=== PATIENT | male | born 1955 | race Caucasian/White ===

== ENCOUNTER → 2016-10-09 | Outpatient (CLI) | payer OTHER ==
--- NOTE | 2016-10-09 13:11 | RAD ---
Two-view abdomen radiographs 10/09/2016 Clinical history: Abdominal pain with nausea and diarrhea for 2 days. 3 AP supine and 2 AP erect digital radiographs of the abdomen/pelvis were obtained. Comparison study is dated 07/14/2008. The lung bases are clear. There is no evidence of free air. Air distention of both small and large bowel loops is seen throughout the abdomen. The abdominal bowel gas pattern is nonspecific. No radiopaque calculus is seen. Degenerative changes are seen involving the mid and lower lumbar spine. Impression: Nonspecific bowel gas pattern.
== END | disposition home or self-care (01) ==
LOC: DXRADRC 12:39
PROVIDERS: ATTEND Physician Assistant
DX: R10.9 Unspecified abdominal pain (principal); R11.0 Nausea; R19.7 Diarrhea, unspecified; M47.896 Other spondylosis, lumbar region
CPT/HCPCS: 74020

== ENCOUNTER → 2016-12-04 | Outpatient (CLI) | payer MEDICARE ==
--- NOTE | 2016-12-04 08:58 | RAD ---
Chest radiograph 12/04/2016 2:00 AM Indication: Chest congestion with productive cough Comparison: None available Technique: PA and lateral views of the chest are provided. Findings: Cardiomediastinal silhouette is within normal limits. No pleural effusions, pulmonary vascular congestion or pneumothorax. The lungs are clear. There is a 4 mm calcified granuloma in the left upper lobe. Osseous structures are normal. Impression: No acute cardiopulmonary process.
== END | disposition home or self-care (01) ==
LOC: DXRADRC 08:06
PROVIDERS: ATTEND Nurse Practitioner Family
DX: J84.10 Pulmonary fibrosis, unspecified (principal); R09.89 Other specified symptoms and signs involving the circulatory and respiratory systems; R05 Cough
CPT/HCPCS: 71020

== ENCOUNTER 2020-08-07 11:45 | Emergency (ER) | payer MEDICARE ==
[~2020-08-07] VITALS: Ht 180.3 cm; Wt 75.4 kg
[2020-08-07] MEDS ORDERED: IPRATRPIUM/ALBUTEROL 0.5/2.5MG 3 ML NEBU. ONE (11:53)
--- NOTE | 2020-08-07 11:57 | PHYS DOC ---
Adult General Chief Complaint Chief Complaint: DYSPNEA/RESPIRATOY DISTRESS HPI HPI Patient is a 65-year-old male presenting via EMS for acute respiratory failure. Patient "does not like doctors"and has had infrequent outpatient follow-up over the years. Admits to type 2 diabetes mellitus for which she is on Metformin and has history of COPD and sleep apnea but is noncompliant with home inhalers and CPAP machine. Reports past 4 days having increased wheezing and shortness of breath that acutely worsened this morning shortly after waking up. Nothing kno wn makes better, ongoing tobacco abuse makes worse. He has not had any fever or chest pain just generalized feelings of shortness of breath and palpitations. He has no known history of atrial fibrillation, denies being on any blood thinners. Remaining history limited due to acute respiratory failure inability to speak in few word sentences only. EMS reports arriving to home and was greeted by who gave majority of history. Patient was found to be 38% on room air and respiratory failure. X1 DuoNeb, supplemental oxygen and 125 mg Solu-Medrol administered in route Review of Systems Review of Systems Fourteen body systems of review of systems have been reviewed. See HPI for pertinent positives and negative responses, other patton all other systems are negative, non-pertinent or non-contributory Current Medications Current Medications Current Medications Medications (Trade) Dose Ordered Sig/Tj Start Time Stop Time Status Last Admin Dose Admin Albuterol/ Ipratropium (Duoneb) 3 ml 1X ONCE 08/07/20 12:00 08/07/20 12:01 DC Diltiazem HCl (Cardizem Iv Push) 20 mg 1X ONCE 08/07/20 12:15 08/07/20 12:16 DC 08/07/20 12:15 Heparin Sodium (Porcine) (Heparin Sodium) 1,900 unit PRN Q6HRS PRN 08/07/20 13:15 Heparin Sodium/ Dextrose 250 ml @ 9 mls/hr CONT PRN 08/07/20 13:15 08/07/20 14:33 Info (Do NOT chart on this entry -- for MONITORING) 1 each PRN DAILY PRN 08/07/20 13:45 08/09/20 13:44 Iohexol (Omnipaque 350 Mg/ml) 100 ml 1X ONCE 08/07/20 13:45 08/07/20 13:46 DC Lorazepam (Ativan Inj) 1 mg 1X ONCE 08/07/20 12:00 08/07/20 12:01 DC 08/07/20 12:00 Sodium Chloride 1,000 ml @ 1,000 mls/hr 1X ONCE 08/07/20 12:30 08/07/20 13:29 DC 08/07/20 12:28 Physical Exam Physical Exam Constitutional: Age-appropriate, appears disheveled, in acute respiratory failure and toxic appearing HENT: Normocephalic, atraumatic, bilateral external ears normal, oropharynx moist, no oral exudates, nose normal. Eyes: PERRLA, EOMI, conjunctiva normal, no discharge. Neck: Normal range of motion, no tenderness, supple, no stridor. Cardiovascular: Atrial fibrillation with rapid ventricular rate no murmurs rubs or gallops Lungs & Thorax: In overt respiratory failure, tripoding with accessory muscle use of neck and abdomen noted, tachypneic, wheezes present in all lobes Abdomen: Bowel sounds normal, soft, no tenderness, no masses, no pulsatile masses. Nonsurgical abdomen, no peritoneal signs Skin: Warm, dry, no erythema, no rash. Back: No tenderness, no CVA tenderness. Extremities: No tenderness, no cyanosis, no clubbing, ROM intact, no edema. Neurologic: Alert and oriented X 3, grossly normal motor & sensory function, no focal deficits noted. Psychologic: Anxious affect and mood Current Patient Data Vital Signs Vital Signs Date Time Temp Pulse Resp B/P (MAP) Pulse Ox O2 Delivery O2 Flow Rate FiO2 08/07/20 11:46 97.7 160 30 123/55 (77) 89 Nasal Cannula 10.0 Vital Signs Date Time Temp Pulse Resp B/P (MAP) Pulse Ox O2 Delivery O2 Flow Rate FiO2 08/07/20 12:15 168 116/108 08/07/20 11:46 97.7 30 89 Nasal Cannula 10.0 Lab Results Laboratory Tests Test 08/07/20 11:55 08/07/20 12:00 08/07/20 12:30 White Blood Count 9.8 x10^3/uL Red Blood Count 5.17 x10^6/uL Hemoglobin 16.6 g/dL Hematocrit 50.2 % Mean Corpuscular Volume 97 fL Mean Corpuscular Hemoglobin 32 pg Mean Corpuscular Hemoglobin Concent 33 g/dL Red Cell Distribution Width 13.9 % Platelet Count 195 x10^3/uL Neutrophils (%) (Auto) 63 % Lymphocytes (%) (Auto) 23 % Monocytes (%) (Auto) 12 % Eosinophils (%) (Auto) 2 % Basophils (%) (Auto) 1 % Neutrophils # (Auto) 6.2 x10^3uL Lymphocytes # (Auto) 2.2 x10^3/uL Monocytes # (Auto) 1.1 x10^3/uL Eosinophils # (Auto) 0.2 x10^3/uL Basophils # (Auto) 0.1 x10^3/uL Sodium Level 143 mmol/L Potassium Level 5.2 mmol/L Chloride Level 103 mmol/L Carbon Dioxide Level 30 mmol/L Anion Gap 10 Blood Urea Nitrogen 19 mg/dL Creatinine 1.1 mg/dL Estimated GFR (Cockcroft-Gault) 67.6 BUN/Creatinine Ratio 17 Glucose Level 328 mg/dL Lactic Acid Level 2.1 mmol/L Calcium Level 8.7 mg/dL Magnesium Level 1.8 mg/dL Total Bilirubin 0.9 mg/dL Aspartate Amino Transf (AST/SGOT) 22 U/L Alanine Aminotransferase (ALT/SGPT) 26 U/L Alkaline Phosphatase 131 U/L Troponin I Quantitative < 0.017 ng/mL XT-Rnh-T-Type Natriuretic Peptide 2719 pg/mL Total Protein 6.7 g/dL Albumin 4.1 g/dL Albumin/Globulin Ratio 1.6 Bedside Venous pH 7.24 Bedside Venous pCO2 75 mmHg Bedside Venous pO2 28 mmHg Venous Blood HCO3 32 mmol/L POC Venous O2 Saturation (Sydni) 40 % Bedside FiO2 100 Prothrombin Time 11.1 SEC Prothromb Time International Ratio 1.1 Activated Partial Thromboplast Time < 21 SEC D-Dimer (Brittany) 3.72 mg/L Current Medications Medications (Trade) Dose Ordered Sig/Tj Route PRN Reason Start Time Stop Time Status Last Admin Dose Admin Albuterol/ Ipratropium (Duoneb) 3 ml STK-MED ONCE .ROUTE 08/07/20 11:53 08/07/20 11:53 DC Lorazepam (Ativan Inj) 1 mg 1X ONCE IVP 08/07/20 12:00 08/07/20 12:01 DC Lorazepam (Ativan Inj) 1 mg 1X ONCE IVP 08/07/20 12:00 08/07/20 12:01 DC 08/07/20 12:00 Albuterol/ Ipratropium (Duoneb) 3 ml 1X ONCE NEB 08/07/20 12:00 08/07/20 12:01 DC Diltiazem HCl (Cardizem Iv Push) 20 mg 1X ONCE IVP 08/07/20 12:15 08/07/20 12:16 DC 08/07/20 12:15 Sodium Chloride 1,000 ml @ 1,000 mls/hr 1X ONCE IV 08/07/20 12:30 08/07/20 13:29 DC 08/07/20 12:28 Heparin Sodium/ Dextrose 250 ml @ 9 mls/hr CONT PRN IV SEE I/O RECORD 08/07/20 13:15 08/07/20 14:33 Heparin Sodium (Porcine) (Heparin Sodium) 4,000 unit 1X ONCE IV 08/07/20 13:15 08/07/20 13:18 DC 08/07/20 14:32 Heparin Sodium (Porcine) (Heparin Sodium) 1,900 unit PRN Q6HRS PRN IV FOR PTT LESS THAN 24 SECONDS 08/07/20 13:15 Iohexol (Omnipaque 350 Mg/ml) 100 ml 1X ONCE IV 08/07/20 13:45 08/07/20 13:46 DC Info (Do NOT chart on this entry -- for MONITORING) 1 each PRN DAILY PRN MC SEE COMMENTS 08/07/20 13:45 08/09/20 13:44 EKG EKG EKG ordered and interpreted by myself at 1158 hrs. as in irregular rhythm such as atrial fibrillation with ventricular rate of 169, prolonged QTC at 485 otherwise unremarkable intervals, no axis deviation, no obvious ischemic findings, no STEMI Repeat EKG ordered and interpreted by myself at 1314 hrs. as atrial fibrillation with ventricular rate of 122, unremarkable intervals, no axis deviation, no acute ischemic findings, no STEMI Radiology/Procedures Radiology/Procedures Exam performed: One view chest. Indication: Reason: shob / Spl. Instructions: / History: Date of Service: 08/07/2020 12:04 PM Comparison: 2 views chest from March 2016. Single AP upright portable view chest findings: Cardiomediastinal silhouette is within limits of normal. No acute infiltrates, effusion or pneumothorax is detected. Prominent interstitial markings are seen in both perihilar regions and lung bases perhaps chronic. The bony structures are normal. Impression: No acute cardiopulmonary process is detected. Electronically signed by: Mindy Gar MD (08/07/2020 12:15 PM) [facility] ////////////// EXAM: CT angiography of the chest with intravenous contrast. HISTORY: Shortness of breath. TECHNIQUE: Computed tomographic images of the chest were obtained following the administration of intravenous contrast according to angiography protocol. Multiplanar reformatting was performed and three dimensional maximum intensity projection images were obtained. *One or more of the following individualized dose reduction techniques were utilized for this examination: 1. Automated exposure control. 2. Adjustment of the mA and/or kV according to patient size. 3. Use of iterative reconstruction technique. COMPARISON: None. FINDINGS: There is no evidence of pulmonary embolism. The heart is mildly enlarged. There is a small amount of pericardial fluid. There are enlarged mediastinal and hilar lymph nodes. There are small right greater than left pleural effusions. There is no pneumothorax. There is emphysema with biapical predominant pleural parenchymal scarring. There is partially consolidated bilateral lower lobe infiltrate. There is lingular and anterior medial right middle lobe pleural parenchymal scarring. There is central bronchial wall thickening suggesting bronchitis. There is trace congestion. There are degenerative changes throughout the spine. There is no acute or suspicious osseous lesion. There is perihepatic ascites, partially included on the [id number]. IMPRESSION: 1. No evidence of pulmonary embolism. 2. Partially consolidated bilateral lower lobe infiltrate and small right grea ter than left pleural effusions. 3. Pulmonary emphysema and central bronchial wall thickening likely due to bronchitis. There is also suspected trace congestion. 4. Mediastinal and hilar lymphadenopathy, likely reactive given the aforementioned findings. Electronically signed by: Cookie Barajas MD (08/07/2020 2:22 PM) [id number] Heart Score C/O Chest Pain: No HEART Score for Chest Pain: HEART Score for Chest Pain Response (Comments) Value History Moderately Suspicious 1 ECG Normal 0 Age >45 - < 65 1 Risk Factors >3 Risk Factors or Hx CAD 2 Total 4 Risk Factors: Risk Factors: DM, Current or recent (<one month) smoker, HTN, HLP, family history of CAD, obesity. Risk Scores: Risk Factors: DM, Current or recent (<one month) smoker, HTN, HLP, family hi story of CAD, obesity. Course & Med Decision Making Course & Med Decision Making Airway patent, and overt respiratory distress on arrival, x2 large-bore IVs established and vitals obtained concerning for 89% oxygen saturation on 10 L nonrebreather, tachycardia and tachypnea Limited HPI due to patient condition, physical exam and subsequent diagnostic ER work-up obtained 125 mg Solu-Medrol and x1 DuoNeb administered in route. 1 mg IV Ativan and additional DuoNeb administered on immediate ER arrival with improvement in patient's anxiety. BiPAP subsequently placed with improvement in symptoms Decision was made due to persistent atrial fibrillation which is new for patient with rate greater than 150 to administer 20 mg IV Cardizem which improved patient's pressure but also caused persistent hypotension, subsequent 1 L IV normal saline required for improvement Patient still in atrial fibrillation with heart rate between 100-130s and so decision was made to start heparin drip Patient's respiratory condition improved with ongoing BiPAP use. I reported all findings to patient and at bedside and discussed need for admission. I contacted [facility] hospitalist but he feared that patient required higher acuity of care and recommended transfer As such, I contacted hospitalist at [facility] and discussed need for hospital transfer. They agreed need for admission and accepted patient under his care. Decision made to defer antibiotic administration until patient was transferred to accepting facility I updated patient and on proposed plan of care that included hospital transfer, they were amenable. All questions and concerns addressed prior to ER departure Critical Care Time This patient required critical care. Due to the fact that the patient required a significant amount of one on one physician - patient contact time, ordering and review of studies, arranging urgent treatment with development of a management plan, evaluation of patients response to treatment with frequent reassessments, and discussions with other providers this patient required 60 minutes of critical care time. Critical care time was indicated due to the inherent instability and/or potential for instability in this patient. The critical care time that is allocated to this patient is above and beyond any time spent on any other billable procedures performed on this patient. Dragon Disclaimer Dragon Disclaimer This electronic medical record was generated, in whole or in part, using a voice recognition dictation system. Departure Departure: Impression: Primary Impression: Atrial fibrillation with rapid ventricular response Additional Impressions: Acute respiratory failure with hypoxia and hypercarbia History of type 2 diabetes mellitus Tobacco abuse Dis[facility] 02 [facility] Admitting Physician: Other (dr dhaliwal) Condition: STABLE Referrals: ROSEMARIE KEITA DO (PCP) Problem Qualifiers KASSY AGUILERA DO Aug 07, 2020 11:57
[2020-08-07] MEDS ORDERED: IPRATRPIUM/ALBUTEROL 0.5/2.5MG 3 ML NEBU. NEB ONE (12:00)
[2020-08-07] MEDS ORDERED: dilTIAZem 25 MG/5 ML VIAL IVP ONE (12:15)
--- NOTE | 2020-08-07 12:18 | RAD ---
Exam performed: One view chest. Indication: Reason: shob / Spl. Instructions: / History: Date of Service: 08/07/2020 12:04 PM Comparison: 2 views chest from March 2016. Single AP upright portable view chest findings: Cardiomediastinal silhouette is within limits of normal. No acute infiltrates, effusion or pneumotho rax is detected. Prominent interstitial markings are seen in both perihilar regions and lung bases pe rhaps chronic. The bony structures are normal. Impression: No acute cardiopulmonary process is detected. Electronically signed by: Mindy Gar MD (08/07/2020 12:15 PM) [facility]
[2020-08-07 12:21] LABS: BASO # 0.1 x10^3/uL (0.0-0.2); BASO % 1 % (0-3); EOS # 0.2 x10^3/uL (0.0-0.7); EOS % 2 % (0-3); HEMATOCRIT 50.2 % (39.0-53.0); HEMOGLOBIN 16.6 g/dL (13.0-17.5); LYMPH # 2.2 x10^3/uL (1.0-4.8); LYMPH % 23 % (24-48); MEAN CORPUSCULAR HEMOGLOBIN 32 pg (25-35); MEAN CORPUSCULAR HGB CONC 33 g/dL (31-37); MEAN CORPUSCULAR VOLUME 97 fL (79-100); MONO # 1.1 x10^3/uL (0.0-1.1); MONO % 12 % (0-9); NEUT # 6.2 x10^3uL (1.8-7.7); NEUT % 63 % (31-73); PLATELET COUNT 195 x10^3/uL (140-400); RED BLOOD COUNT 5.17 x10^6/uL (4.30-5.70); RED CELL DISTRIBUTION WIDTH 13.9 % (11.5-14.5); WHITE BLOOD COUNT 9.8 x10^3/uL (4.0-11.0)
[2020-08-07] MEDS ORDERED: IV NORMAL SALINE 1,000ML 1,000 ML IV ONE (12:30)
[2020-08-07 12:39] LABS: ALBUMIN 4.1 g/dL (3.4-5.0); ALBUMIN/GLOBULIN RATIO 1.6 (1.0-1.7); CALCIUM 8.7 mg/dL (8.5-10.1); CREATININE 1.1 mg/dL (0.7-1.3); GFR 67.6; POTASSIUM 5.2 mmol/L (3.5-5.1); TOTAL BILIRUBIN 0.9 mg/dL (0.2-1.0); TOTAL PROTEIN 6.7 g/dL (6.4-8.2)
[2020-08-07] MEDS ORDERED: HEPARIN for IV BOLUS 10,000 UNIT/10 ML VIAL. IV ONE (13:15)
[2020-08-07] MEDS ORDERED: HEPARIN for IV BOLUS 10,000 UNIT/10 ML VIAL. IV PRN (13:15)
[2020-08-07] MEDS ORDERED: HEPARIN 25,000UTS/250ML PREMIX 250 ML IV PRN (13:15)
[2020-08-07] MEDS ORDERED: CONTRAST GIVEN. MC PRN (13:45)
[2020-08-07] MEDS ORDERED: IOHEXOL 350 MG/ML 100 ML VIAL. IV ONE (13:45)
--- NOTE | 2020-08-07 14:10 | EKG ---
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
--- NOTE | 2020-08-07 14:11 | EKG ---
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
--- NOTE | 2020-08-07 14:24 | RAD ---
EXAM: CT angiography of the chest with intravenous contrast. HISTORY: Shortness of breath. TECHNIQUE: Computed tomographic images of the chest were obtained following the administration of int ravenous contrast according to angiography protocol. Multiplanar reformatting was performed and three dimensional maximum intensity projection images were obtained. *One or more of the following individualized dose reduction techniques were utilized for this examina tion: 1. Automated exposure control. 2. Adjustment of the mA and/or kV according to patient size. 3. Use of iterative reconstruction technique. COMPARISON: None. FINDINGS: There is no evidence of pulmonary embolism. The heart is mildly enlarged. There is a small amount of pericardial fluid. There are enlarged mediastinal and hilar lymph nodes. There are small ri ght greater than left pleural effusions. There is no pneumothorax. There is emphysema with biapical predominant pleural parenchymal scarring. There is partially consoli dated bilateral lower lobe infiltrate. There is lingular and anterior medial right middle lobe pleura l parenchymal scarring. There is central bronchial wall thickening suggesting bronchitis. There is tr kerry congestion. There are degenerative changes throughout the spine. There is no acute or suspicious osseous lesion. There is perihepatic ascites, partially included on the [id number]. IMPRESSION: 1. No evidence of pulmonary embolism. 2. Partially consolidated bilateral lower lobe infiltrate and small right greater than left pleural e ffusions. 3. Pulmonary emphysema and central bronchial wall thickening likely due to bronchitis. There is also suspected trace congestion. 4. Mediastinal and hilar lymphadenopathy, likely reactive given the aforementioned findings. Electronically signed by: Cookie Barajas MD (08/07/2020 2:22 PM) [id number]
[2020-08-07 15:57] LABS: BARBITURATES NEG (NEG); BENZODIAZEPINES NEG (NEG); CANNABINOIDS NEG (NEG); COCAINE NEG (NEG); METHADONE NEG (NEG); OPIATES NEG (NEG); PHENCYCLIDINE NEG (NEG)
[2020-08-07 16:01] LABS: AMPHETAMINE/METHAMPHETAMINE NEG (NEG)
[2020-08-07] MEDS ORDERED: DIGOXIN IV 500 MCG/2 ML AMPUL. IV ONE (16:15)
[2020-08-07 20:30] VITALS: BP 98/68
== END 2020-08-07 21:26 | disposition short-term general hospital (02) ==
LOC: ER 11:45
DX: J96.01 Acute respiratory failure with hypoxia (principal); J96.02 Acute respiratory failure with hypercapnia; I48.20 Chronic atrial fibrillation, unspecified; E11.9 Type 2 diabetes mellitus without complications; J44.9 Chronic obstructive pulmonary disease, unspecified
CPT/HCPCS: 36415; 71045; 71275; 80053; 80307; 82803; 83605; 83735; 83880; 84443; 84484; 85025; 85379; 85610; 85730; 87040; 93005; 94640; 94660; 96361; 96365; 96366; 96375; 96376; 99291; J1160; J1644; J2060; J3490; J7030

== ENCOUNTER → 2020-09-13 | Outpatient (CLI) | payer MEDICARE ==
--- NOTE | 2020-09-13 16:18 | RAD ---
MR#: [id number] Date of Study: 09/13/2020 Ordering Physician: JENNIFER ELENA, Referring Physician: JENNIFER ELENA, Tech: Zainab Moss RVT, SILVESTRE APPROVED REPORT Patient Location: OUT-PATIENT Indications Claudication: Numbness/Tingling PAD Grayscale images of the bilateral lower extremity arterial vessels demonstrates moderate diffuse athe rosclerosis above the knee and severe diffuse atherosclerosis below the knee. On the right side no significant stenosis is noted from the common femoral artery to the popliteal se gment. Below the knee there is severe disease and likely occlusion of the posterior tibial artery. Th e peroneal artery and the anterior tibial artery appear to be patent although velocities are diminish ed suggestive of severe disease diffusely. On the left side no significant stenosis is noted from the common femoral artery to the mid SFA. From the distal SFA to the below-knee segments there is severely diminished velocities suggestive of high -grade stenosis at the level of the P1 segment of the popliteal artery. Below the knee there are noemi rely diminished waveforms consistent with more proximal stenosis. There does appear to be three-vesse l runoff. Risk Factors Hypertension Hyperlipidemia TIA/CVA History Cardiac Disease Diabetes Smoking VELOCITY AND DOPPLER WAVEFORM ANALYSIS RIGHT cm/secWaveformSeverity LEFT cm/secWaveform Severity pCFA 120.7TriphasicpCFA 83.6Triphasic Prof Fem Art. 52.0TriphasicProf Fem Art. 160.0Triphasic Fem Art Prox. 99.2TriphasicFem Art Prox. 54.4Triphasic Fem Art Mid. 113.8TriphasicFem Art Mid. 45.1Triphasic Fem Art Dist. 49.1TriphasicFem Art Dist. 12.4Monophasic Pop Art(Fossa) 54.1TriphasicPop Art(AK) 24.6Monophasic LOTTERIES AGENT Prox. 21.3TriphasicPTA Prox. 37.6Monophasic LOTTERIES AGENT Dist. 17.6TriphasicPTA Dist. 30.2Monophasic Per Art Prox. 55.3TriphasicPer Art Prox. 11.6Monophasic HOLLY Prox. 32.9TriphasicATA Prox. 6.1Monophasic DPA 23TriphasicDPA 19Monophasic Critical Notification Critical Value: No <Conclusion> 1. Severe bilateral lower extremity arterial disease, left greater than right. 2. Probable diffuse disease on the right side below the knee and high-grade focal stenosis involving the SFA popliteal junction on the left side. Signed by : Srinath Huang, Electronically Approved : 09/13/2020 16:17:39
== END ==
LOC: US 08:32
PROVIDERS: ATTEND Internal Medicine Cardiovascular Disease
DX: I77.9 Disorder of arteries and arterioles, unspecified (principal); I10 Essential (primary) hypertension; I48.91 Unspecified atrial fibrillation; E78.5 Hyperlipidemia, unspecified; E11.9 Type 2 diabetes mellitus without complications; Z72.0 Tobacco use; I73.9 Peripheral vascular disease, unspecified
CPT/HCPCS: 93925

== ENCOUNTER 2020-12-28 16:51 | Inpatient (IN) | payer MEDICARE ==
[~2020-12-28] VITALS: Ht 180.3 cm; Wt 79.1 kg
--- NOTE | 2020-12-28 17:29 | PHYS DOC ---
Past History Past Medical History: A-Fib, Arthritis, COPD, Diabetes (KASSY AGUILERA DO) Past Surgical History: Coronary Bypass Surgery (KASSY AGUILERA DO) Alcohol Use: None (KASSY AGUILERA DO) Adult General Chief Complaint Chief Complaint: ALTERED MENTAL STATUS [facility] HPI Patient is a 65-year-old male presenting with for confusion. Both patient and are poor historians. Patient reports onset was within past 24 hours without any inciting event, trauma, ingestion, mechanism of injury or sick contact. Patient reports feeling more confused and lethargic since this morning . Denies any falls but admits he has had trouble performing typical activities of daily living for which he usually performs. confirms that there have been no falls today or major changes in home medications. Admits he has had complicated recent medical history for which he suffered a respiratory arrest in 2020 and has not been the same ever since. States he has new diagnoses of A. fib which is rate controlled with metoprolol with anticoagulation by warfarin. Admits history of extensive cardiac disease for which he sees cardiology at [facility] for and has numerous heart stents. He also has extensive peripheral vascular disease of bilateral lower extremities with recent left lower extremity catheterization and stent placement 48 hours ago. Does admit he was started on Plavix at that time and has been taking this diligently ever since. Nonetheless, patient reports he feels better on ER arrival than he has all day but still does not feel great. Continues to feel lethargic, some generalized shortness of breath and chronic neuropathic pain in bilateral lower extremities (KASSY AGUILERA DO) Review of Systems Review of Systems Fourteen body systems of review of systems have been reviewed. See HPI for pertinent positives and negative responses, other patton all other systems are negative, non-pertinent or non-contributory (KASSY AGUILERA DO) Allergies Allergies Allergies Coded Allergies Type Severity Reaction Last Updated Verified No Known Drug Allergies 08/07/20 No (KASSY AGUILERA DO) Physical Exam Physical Exam Constitutional: Well developed, well nourished, no acute distress, non-toxic appearance. HENT: Normocephalic, atraumatic, bilateral external ears normal, oropharynx moist, no oral exudates, nose normal. Eyes: PERRLA, EOMI, conjunctiva normal, no discharge. Neck: Normal range of motion, no tenderness, supple, no stridor. Cardiovascular: Heart rate regular, sinus rhythm, no murmurs rubs or gallops Lungs & Thorax: Bilateral breath sounds clear to auscultation Abdomen: Bowel sounds normal, soft, no tenderness, no masses, no pulsatile masses. Nonsurgical abdomen, no peritoneal signs Skin: Warm, dry, no erythema, no rash. Back: No tenderness, no CVA tenderness. Extremities: No tenderness, no cyanosis, no clubbing, ROM intact, no edema. Neurologic: Alert and oriented X 3, grossly normal motor & sensory function, no focal deficits noted. Psychologic: Affect normal, judgement normal, mood normal. (KASSY AGUILERA DO) Current Patient Data Vital Signs Vital Signs Date Time Temp Pulse Resp B/P (MAP) Pulse Ox O2 Delivery O2 Flow Rate FiO2 12/28/20 17:06 97.9 133 16 86/54 (65) 98 Room Air Lab Results Laboratory Tests Test 12/28/20 17:18 White Blood Count 11.2 x10^3/uL Red Blood Count 5.03 x10^6/uL Hemoglobin 16.3 g/dL Hematocrit 48.9 % Mean Corpuscular Volume 97 fL Mean Corpuscular Hemoglobin 32 pg Mean Corpuscular Hemoglobin Concent 33 g/dL Red Cell Distribution Width 15.5 % Platelet Count 188 x10^3/uL Neutrophils (%) (Auto) 66 % Lymphocytes (%) (Auto) 20 % Monocytes (%) (Auto) 12 % Eosinophils (%) (Auto) 2 % Basophils (%) (Auto) 1 % Neutrophils # (Auto) 7.4 x10^3uL Lymphocytes # (Auto) 2.2 x10^3/uL Monocytes # (Auto) 1.3 x10^3/uL Eosinophils # (Auto) 0.3 x10^3/uL Basophils # (Auto) 0.1 x10^3/uL Prothrombin Time 11.3 SEC Prothromb Time International Ratio 1.1 Activated Partial Thromboplast Time 27 SEC Sodium Level 140 mmol/L Potassium Level 4.0 mmol/L Chloride Level 97 mmol/L Carbon Dioxide Level 30 mmol/L Anion Gap 13 Blood Urea Nitrogen 16 mg/dL Creatinine 0.9 mg/dL Estimated GFR (Cockcroft-Gault) 85.2 BUN/Creatinine Ratio 18 Glucose Level 139 mg/dL Lactic Acid Level 1.4 mmol/L Calcium Level 9.7 mg/dL Magnesium Level 1.7 mg/dL Total Bilirubin 1.3 mg/dL Aspartate Amino Transf (AST/SGOT) 11 U/L Alanine Aminotransferase (ALT/SGPT) 24 U/L Alkaline Phosphatase 100 U/L Troponin I High Sensitivity 9 ng/L Total Protein 7.5 g/dL Albumin 4.4 g/dL Albumin/Globulin Ratio 1.4 Current Medications Medications (Trade) Dose Ordered Sig/Tj Route PRN Reason Start Time Stop Time Status Last Admin Dose Admin Sodium Chloride 500 ml @ 0 mls/hr 1X ONCE IV 12/28/20 18:00 12/28/20 18:01 DC 12/28/20 17:59 Sodium Chloride 500 ml @ As Directed STK-MED ONCE .ROUTE 12/28/20 17:57 12/28/20 17:57 DC (KASSY AGUILERA DO) EKG EKG EKG ordered and interpreted by myself at 1717 hrs. as atrial fibrillation at 123 bpm, unremarkable intervals, no axis deviation, no obvious ischemic findings, no STEMI (KASSY AGUILERA DO) Radiology/Procedures Radiology/Procedures EXAM: CHEST ONE VIEW. HISTORY: Shortness of breath. COMPARISON: 08/07/2020. FINDINGS: A frontal view of the chest is obtained. There are no confluent infiltrates. Hyperinflation is consistent with chronic obstructive pulmonary disease. There is a calcified granuloma in the left upper lobe. There is no pneumothorax or pleural effusion. The heart is not enlarged. IMPRESSION: 1. No confluent infiltrates. Chronic obstructive pulmonary disease. Electronically signed by: Jaime Espinal MD (12/28/2020 6:01 PM) [facility] (KASSY AGUILERA DO) Heart Score C/O Chest Pain: No HEART Score for Chest Pain: HEART Score for Chest Pain Response (Comments) Value History Highly Suspicious 2 ECG Nonspecific Repolarizatio 1 Age >45 - < 65 1 Risk Factors >3 Risk Factors or Hx CAD 2 Total 6 Risk Factors: Risk Factors: DM, Current or recent (<one month) smoker, HTN, HLP, family history of CAD, obesity. Risk Scores: Risk Factors: DM, Current or recent (<one month) smoker, HTN, HLP, family history of CAD, obesity. (KASSY AGUILERA DO) Course & Med Decision Making Course & Med Decision Making Airway patent, breathing unlabored, IV access and vitals obtained concerning for tachycardia and hypotension HPI limited from both patient and due to poor overall health literacy. Physical examination nonconcerning for any emergent or surgical issues. Initial ER work-up obtained, no STEMI per EKG but patient does appear hypovolemic clinically 500 mL normal saline administered. Patient already anticoagulated with warfarin and aspirin. Further diagnostic work-up studies still pending. At this time in care, comprehensive signout given to oncoming physician. Please defer to Dr. Lyon's documentation regarding future care of patient (KASSY AGUILERA DO) Course & Med Decision Making Patient care handed off to me at checkout pending labs. Patient awake alert and oriented and responded well to IV fluid resuscitation with vital signs improved. Remains in A. fib with heart rates around 100-1 10, blood pressure 95/76 with a MAP of 84, no fever, breathing room air at 20 times a minute saturating 97%. Laboratory analysis including troponin, and lactic acid not concerning. Imaging of the CT head/chest abdomen and pelvis with no obvious acute abnormalities. Given patient's recent femoral stent, mild confusion and hypotension, heart failure versus sepsis on the differential. Continued on IV fluid resuscitation and started on antibiotics. Blood cultures obtained. Called patient's filleter group at [facility] to make them aware patient would be admitted here to [facility] to Dr. Wilkes overnight and probable transfer to [facility] when a bed becomes available. Patient family grateful, verbalized understanding and agreed with plan of admission (FRANCESCA LYON MD) Dragon Disclaimer Dragon Disclaimer This electronic medical record was generated, in whole or in part, using a voice recognition dictation system. (KASSY AGUILERA DO) Departure Departure: Impression: Primary Impression: Altered mental status Additional Impressions: Hypotension A-fib Disposition: ADMITTED INPATIENT Admitting Physician: Mitzi Wilkes (FRANCESCA LYON MD) Condition: IMPROVED Referrals: MILES LINN MD (PCP) Problem Qualifiers KASSY AGUILERA DO Dec 28, 2020 17:29 FRANCESCA LYON MD Dec 28, 2020 19:27
[2020-12-28 17:41] LABS: BASO # 0.1 x10^3/uL (0.0-0.2); BASO % 1 % (0-3); EOS # 0.3 x10^3/uL (0.0-0.7); EOS % 2 % (0-3); HEMATOCRIT 48.9 % (39.0-53.0); HEMOGLOBIN 16.3 g/dL (13.0-17.5); LYMPH # 2.2 x10^3/uL (1.0-4.8); LYMPH % 20 % (24-48); MEAN CORPUSCULAR HEMOGLOBIN 32 pg (25-35); MEAN CORPUSCULAR HGB CONC 33 g/dL (31-37); MEAN CORPUSCULAR VOLUME 97 fL (79-100); MONO # 1.3 x10^3/uL (0.0-1.1); MONO % 12 % (0-9); NEUT # 7.4 x10^3uL (1.8-7.7); NEUT % 66 % (31-73); PLATELET COUNT 188 x10^3/uL (140-400); RED BLOOD COUNT 5.03 x10^6/uL (4.30-5.70); RED CELL DISTRIBUTION WIDTH 15.5 % (11.5-14.5); WHITE BLOOD COUNT 11.2 x10^3/uL (4.0-11.0)
[2020-12-28 17:50] LABS: CALCIUM 9.7 mg/dL (8.5-10.1); CREATININE 0.9 mg/dL (0.7-1.3); GFR 85.2
[2020-12-28 17:56] LABS: ALBUMIN 4.4 g/dL (3.4-5.0); ALBUMIN/GLOBULIN RATIO 1.4 (1.0-1.7); MAGNESIUM 1.7 mg/dL (1.8-2.4); TOTAL BILIRUBIN 1.3 mg/dL (0.2-1.0); TOTAL PROTEIN 7.5 g/dL (6.4-8.2)
[2020-12-28] MEDS ORDERED: IV NORMAL SALINE 500ML 500 ML ONE (17:57)
[2020-12-28] MEDS ORDERED: IV NORMAL SALINE 500ML 500 ML IV ONE (18:00)
--- NOTE | 2020-12-28 18:03 | RAD ---
EXAM: CHEST ONE VIEW. HISTORY: Shortness of breath. COMPARISON: 08/07/2020. FINDINGS: A frontal view of the chest is obtained. There are no confluent infiltrates. Hyperinflation is consistent with chronic obstructive pulmonary d isease. There is a calcified granuloma in the left upper lobe. There is no pneumothorax or pleural ef fusion. The heart is not enlarged. IMPRESSION: 1. No confluent infiltrates. Chronic obstructive pulmonary disease. Electronically signed by: Jaime Espinal MD (12/28/2020 6:01 PM) [facility]
--- NOTE | 2020-12-28 18:03 | EKG ---
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
--- NOTE | 2020-12-28 18:41 | RAD ---
Exam: CT head without contrast Date: 12/28/2020. Indication: Altered mental status on anticoagulation. Comparisons: None Technique: CT of the head without intravenous contrast performed using contiguous axial imaging from the skull base to the vertex. Soft tissue and bone window algorithms were reviewed. The CT scan was acquired using radiation reduction techniques, such automated exposure control, adjustment of the mA and/or kV according to the patient's size and use of iterative reconstruction techniques. Findings: The ventricles, cortical sulci and cisterns are symmetric and appropriate in size. Neither mass, midline shift, extra-axial fluid collections, intracranial hemorrhage, nor acute or subacute is chemic changes are seen. The calvarium is intact. The visualized skull base is normal in appearance. The visualized paranasal sinuses and mastoid air cells are clear. The orbits and their contents are s ymmetric. Impression: No evidence of acute intracranial process. Electronically signed by: Gurdeep Longoria DO (12/28/2020 6:39 PM) [facility]
[2020-12-28] MEDS ORDERED: MAGNESIUM SULFATE 2GM 50 ML IV ONE (18:45)
[2020-12-28] MEDS ORDERED: IV RINGERS SOLUTION,LACTATED 1,000 ML IV ONE (18:45)
[2020-12-28] MEDS ORDERED: AZITHROMYCIN 250 MG TABLET. PO ONE (19:30)
[2020-12-28] MEDS ORDERED: cefTRIAXone SODIUM 1 GM VIAL ONE (19:49)
[2020-12-28] MEDS ORDERED: IV NORMAL SALINE 50ML 50 ML ONE (19:49)
--- NOTE | 2020-12-28 19:51 | RAD ---
EXAM: CT OF THE CHEST, ABDOMEN AND PELVIS WITHOUT CONTRAST. HISTORY: Altered mental status, hypotension. TECHNIQUE: Computed tomography of the chest, abdomen and pelvis was performed without intravenous con trast. One or more of the following individualized dose reduction techniques were utilized for this e xamination: 1. Automated exposure control. 2. Adjustment of the mA and/or kV according to patient size. 3. Use of iterative reconstruction technique. COMPARISON: 08/07/2020. FINDINGS: Bone windows reveal no suspicious lesions. There are no pathologically enlarged mediastinal or axillary lymph nodes. There is no pleural or sharmila cardial effusion. The heart is not enlarged. There is mild to moderate centrilobular emphysema. A small groundglass density nodule in the right up per lobe on image 43 measures 4 mm. This is stable. There is mild bronchiectasis in the right base. A calcified granuloma is noted in the left upper lobe. The liver, gallbladder, pancreas, adrenal glands and spleen are unremarkable without contrast. A benign left renal cyst measures 1.4 cm. There are a few small bilateral renal calculi measuring up to 3 mm on the left. There are no ureteral calculi or hydronephrosis. The prostate is moderately enla rged with a prominent median lobe impresses on the bladder base. There are no pathologically enlarged lymph nodes. There is stranding superficial to the left iliac is muscle, consistent with a small amount of ecchymosis. There is no hematoma or hemoperitoneum. Sigmoid diverticulosis is mild. Stool throughout the colon is consistent with constipation. The appen jennifer is not inflamed. There is no small bowel obstruction. IMPRESSION: 1. Small amount of ecchymosis within the left retroperitoneum. Correlate for recent femoral arterial puncture. No significant hematoma. 2. Mild to moderate centrilobular emphysema. Mild bronchiectasis in the right base. 3. A 4 mm right upper lobe nodule could be followed in one year if there is persistent concern. 4. Small bilateral renal calculi measure up to 4 mm. Electronically signed by: Jaime Espinal MD (12/28/2020 7:49 PM) [facility]
[2020-12-28] MEDS ORDERED: INSU100I13 SQ (22:09)
[2020-12-28] MEDS ORDERED: DEXTROSE 50% 25 GM / 50ML DISP.SYRIN. IV PRN (22:15)
[2020-12-28] MEDS: INSULIN GLARGINE SYRINGE. SQ SCH (23:19)
[2020-12-29 05:59] VITALS: BP 96/65
[2020-12-29 06:22] LABS: BASO # 0.1 x10^3/uL (0.0-0.2); BASO % 1 % (0-3); EOS # 0.2 x10^3/uL (0.0-0.7); EOS % 3 % (0-3); HEMATOCRIT 43.3 % (39.0-53.0); HEMOGLOBIN 14.4 g/dL (13.0-17.5); LYMPH # 1.8 x10^3/uL (1.0-4.8); LYMPH % 25 % (24-48); MEAN CORPUSCULAR HEMOGLOBIN 32 pg (25-35); MEAN CORPUSCULAR HGB CONC 33 g/dL (31-37); MEAN CORPUSCULAR VOLUME 97 fL (79-100); MONO # 0.9 x10^3/uL (0.0-1.1); MONO % 12 % (0-9); NEUT # 4.3 x10^3uL (1.8-7.7); NEUT % 59 % (31-73); PLATELET COUNT 144 x10^3/uL (140-400); RED BLOOD COUNT 4.49 x10^6/uL (4.30-5.70); RED CELL DISTRIBUTION WIDTH 14.9 % (11.5-14.5); WHITE BLOOD COUNT 7.2 x10^3/uL (4.0-11.0)
[2020-12-29 06:25] LABS: CALCIUM 8.8 mg/dL (8.5-10.1); CREATININE 0.8 mg/dL (0.7-1.3); GFR 97.6; POTASSIUM 4.2 mmol/L (3.5-5.1)
[2020-12-29] MEDS: INSULIN LISPRO 300 UNITS/3 ML VIAL. SQ SCH ×3 (07:38→16:45)
--- NOTE | 2020-12-29 09:21 | PDOC2 ---
VINI WAGNER ANDREE 12/29/20 0921: CARDIAC CONSULT DATE OF CONSULT DOS: DATE: 12/29/20 TIME: 09:01 REASON FOR CONSULT Reason for Consult AMS REFERRING PHYSICIAN Referring Physician Dr. Wilkes SOURCE Source: Chart review, Patient HPI History of Present Illness This is a 65 yo male who presented secondary to altered mental status. Patient reports feeling lightheaded, dizzy, weak, and confused yesterday. was concerned so she brought him into the ED for further evaluation and treatment. Was hypotensive upon arrival and treated with IVFs. Reports feeling much better today, although blood pressure remains low end. He presently denies any dizziness, diaphoresis, or nausea/vomiting. Does reports feeling slightly weak. Does have history of NICM and LE PAD. He underwent successful complex AIR QUALITY CHEMIST/stents placement to long chronic total occlusion involving the left superficial femoral artery in November this year and was started on Plavix therapy. He underwent RLE arteriogram 12/26/20 and was noted with 40 to 50% stenosis involving the right external iliac artery without any significant pullback gradient across the lesion. He tolerated the procedure well. Also has history of AFIB, for which he is on Toprol XL for rate control and warfarin for stroke prophylaxis. Warfarin was held for angiogram. INR is 1.1 upon admission. He reports compliance with medications. PAST MEDICAL HISTORY Cardiovascular: AFIB, CAD, CHF, HTN, hyperipidemia Pulmonary: COPD, Other (CATHERINE) Hepatobiliary: Hep A/B/C (C) Musculoskeletal: Osteoarthritis Endocrine: Diabetes PAST SURGICAL HISTORY Past Surgical History: Other (LE AIR QUALITY CHEMIST/stent ) FAMILY HISTORY Family History: Hypertension SOCIAL HISTORY Smoke: 1 pack per day ALCOHOL: none Drugs: None Lives: with Family CURRENT MEDICATIONS Current Medications Current Medications Sodium Chloride 500 ml @ 0 mls/hr 1X ONCE IV Last administered on 12/28/20at 17:59; Start 12/28/20 at 18:00; Stop 12/28/20 at 18:01; Status DC Sodium Chloride 500 ml @ As Directed STK-MED ONCE .ROUTE ; Start 12/28/20 at 17:57; Stop 12/28/20 at 17:57; Status DC Magnesium Sulfate 50 ml @ 25 mls/hr 1X ONCE IV Last administered on 12/28/20at 18:46; Start 12/28/20 at 18:45; Stop 12/28/20 at 20:44; Status DC Lactated Ringer's 1,000 ml @ 1,000 mls/hr 1X ONCE IV Last administered on 12/28/20at 18:46; Start 12/28/20 at 18:45; Stop 12/28/20 at 19:44; Status DC Fentanyl Citrate (Fentanyl 2ml Vial) 25 mcg 1X ONCE IVP Last administered on 12/28/20at 19:00; Start 12/28/20 at 19:00; Stop 12/28/20 at 19:02; Status DC Ceftriaxone Sodium 1 gm/ Sodium Chloride 50 ml @ 100 mls/hr 1X ONCE IV Last administered on 12/28/20at 19:53; Start 12/28/20 at 19:30; Stop 12/28/20 at 19:59; Status DC Azithromycin (Zithromax) 1,000 mg 1X ONCE PO Last administered on 12/28/20at 19:53; Start 12/28/20 at 19:30; Stop 12/28/20 at 19:31; Status DC Fentanyl Citrate (Fentanyl 2ml Vial) 50 mcg PRN Q2HR PRN IVP PAIN Last administered on 12/29/20at 03:56; Start 12/28/20 at 19:30; Stop 12/29/20 at 19:29 Sodium Chloride 50 ml @ As Directed STK-MED ONCE .ROUTE ; Start 12/28/20 at 19:49; Stop 12/28/20 at 19:49; Status DC Ceftriaxone Sodium (Rocephin) 1 gm STK-MED ONCE .ROUTE ; Start 12/28/20 at 19:49; Stop 12/28/20 at 19:49; Status DC Insulin Human Lispro (HumaLOG) 0-7 UNITS TIDWMEALS SQ ; Start 12/29/20 at 08:00 Dextrose (Dextrose 50%-Water Syringe) 12.5 gm PRN Q15MIN PRN IV SEE COMMENTS; Start 12/28/20 at 22:15 Insulin Glargine (Lantus Syringe) 8 unit QHS SQ Last administered on 12/28/20at 23:19; Start 12/28/20 at 23:00 Active Scripts Active Reported Lantus Solostar (Insulin Glargine,Hum.rec.anlog) 100 Unit/1 Ml Insuln.pen 8 Unit SQ QHS ALLERGIES Allergies: Coded Allergies: No Known Drug Allergies (Unverified , 08/07/20) ROS Review of Systems 14 point ROS conducted with pertinent positives noted above in HPI PHYSICAL EXAM Physical Exam General: Alert, oriented x3, Cooperative, No acute distress HEENT: Atraumatic Lungs: CTA, diminished bases Heart: Other (IRRR; tele AFIB- rate in 90's) Abdomen: Soft, No tenderness Extremities: No LE edema Neuro: Sensation intact Psych/Mental Status: Mood NL MUSCULOSKELETAL: Osteoarthritic changes both hands VITALS Vital Signs Vital Signs Date Time Temp Pulse Resp B/P (MAP) Pulse Ox O2 Delivery O2 Flow Rate FiO2 12/29/20 05:59 99 18 96/65 (75) 97 Room Air 12/28/20 17:06 97.9 LABS LABS Laboratory Tests Test 12/28/20 17:18 12/28/20 19:30 12/28/20 19:38 12/28/20 19:40 White Blood Count 11.2 x10^3/uL (4.0-11.0) Red Blood Count 5.03 x10^6/uL (4.30-5.70) Hemoglobin 16.3 g/dL (13.0-17.5) Hematocrit 48.9 % (39.0-53.0) Mean Corpuscular Volume 97 fL (79-100) Mean Corpuscular Hemoglobin 32 pg (25-35) Mean Corpuscular Hemoglobin Concent 33 g/dL (31-37) Red Cell Distribution Width 15.5 % (11.5-14.5) Platelet Count 188 x10^3/uL (140-400) Neutrophils (%) (Auto) 66 % (31-73) Lymphocytes (%) (Auto) 20 % (24-48) Monocytes (%) (Auto) 12 % (0-9) Eosinophils (%) (Auto) 2 % (0-3) Basophils (%) (Auto) 1 % (0-3) Neutrophils # (Auto) 7.4 x10^3uL (1.8-7.7) Lymphocytes # (Auto) 2.2 x10^3/uL (1.0-4.8) Monocytes # (Auto) 1.3 x10^3/uL (0.0-1.1) Eosinophils # (Auto) 0.3 x10^3/uL (0.0-0.7) Basophils # (Auto) 0.1 x10^3/uL (0.0-0.2) Prothrombin Time 11.3 SEC (9.4-11.4) Prothromb Time International Ratio 1.1 (0.9-1.1) Activated Partial Thromboplast Time 27 SEC (23-33) D-Dimer (Brittany) 0.37 mg/L (0.00-0.50) Sodium Level 140 mmol/L (136-145) Potassium Level 4.0 mmol/L (3.5-5.1) Chloride Level 97 mmol/L (98-107) Carbon Dioxide Level 30 mmol/L (21-32) Anion Gap 13 (6-14) Blood Urea Nitrogen 16 mg/dL (8-26) Creatinine 0.9 mg/dL (0.7-1.3) Estimated GFR (Cockcroft-Gault) 85.2 BUN/Creatinine Ratio 18 (6-20) Glucose Level 139 mg/dL (70-99) Lactic Acid Level 1.4 mmol/L (0.4-2.0) Calcium Level 9.7 mg/dL (8.5-10.1) Magnesium Level 1.7 mg/dL (1.8-2.4) Total Bilirubin 1.3 mg/dL (0.2-1.0) Aspartate Amino Transf (AST/SGOT) 11 U/L (15-37) Alanine Aminotransferase (ALT/SGPT) 24 U/L (16-63) Alkaline Phosphatase 100 U/L (46-116) Troponin I High Sensitivity 9 ng/L (4-75) 8 ng/L (4-75) Total Protein 7.5 g/dL (6.4-8.2) Albumin 4.4 g/dL (3.4-5.0) Albumin/Globulin Ratio 1.4 (1.0-1.7) Bedside Venous pH 7.39 (7.32-7.42) Bedside Venous pCO2 55 mmHg (41-51) Bedside Venous pO2 16 mmHg (20-40) Venous Blood HCO3 34 mmol/L (24-28) POC Venous O2 Saturation (Sydni) 20 % Bedside FiO2 21 SARS-CoV-2 Antigen (Rapid) Negative (NEGATIVE) Test 12/28/20 22:16 12/28/20 22:50 12/29/20 06:02 12/29/20 07:37 Troponin I High Sensitivity 8 ng/L (4-75) 9 ng/L (4-75) Glucose (Fingerstick) 257 mg/dL (70-99) 107 mg/dL (70-99) White Blood Count 7.2 x10^3/uL (4.0-11.0) Red Blood Count 4.49 x10^6/uL (4.30-5.70) Hemoglobin 14.4 g/dL (13.0-17.5) Hematocrit 43.3 % (39.0-53.0) Mean Corpuscular Volume 97 fL (79-100) Mean Corpuscular Hemoglobin 32 pg (25-35) Mean Corpuscular Hemoglobin Concent 33 g/dL (31-37) Red Cell Distribution Width 14.9 % (11.5-14.5) Platelet Count 144 x10^3/uL (140-400) Neutrophils (%) (Auto) 59 % (31-73) Lymphocytes (%) (Auto) 25 % (24-48) Monocytes (%) (Auto) 12 % (0-9) Eosinophils (%) (Auto) 3 % (0-3) Basophils (%) (Auto) 1 % (0-3) Neutrophils # (Auto) 4.3 x10^3uL (1.8-7.7) Lymphocytes # (Auto) 1.8 x10^3/uL (1.0-4.8) Monocytes # (Auto) 0.9 x10^3/uL (0.0-1.1) Eosinophils # (Auto) 0.2 x10^3/uL (0.0-0.7) Basophils # (Auto) 0.1 x10^3/uL (0.0-0.2) Sodium Level 140 mmol/L (136-145) Potassium Level 4.2 mmol/L (3.5-5.1) Chloride Level 102 mmol/L (98-107) Carbon Dioxide Level 29 mmol/L (21-32) Anion Gap 9 (6-14) Blood Urea Nitrogen 17 mg/dL (8-26) Creatinine 0.8 mg/dL (0.7-1.3) Estimated GFR (Cockcroft-Gault) 97.6 Glucose Level 144 mg/dL (70-99) Calcium Level 8.8 mg/dL (8.5-10.1) ECHOCARDIOGRAM Echocardiogram <Conclusion> The left ventricular systolic function is moderately impaired. The ejection fraction is estimated at 30-35%. Mild mitral regurgitation. Mild tricuspid regurgitation. There is no evidence of significant pericardial effusion. DATE: 08/09/20 [id number] 0 HEART CATH Heart Cath [facility] FINDINGS 1. Hemodynamics: Left ventricular end-diastolic pressure of 19 mmHg. No pullback gradient across the aortic valve. 2. Coronary angiography: a. The left main coronary artery arose from the left sinus of Valsalva, gave rise to the left anterior descending and left circumflex arteries and did not show any significant stenosis. b. The left anterior descending artery showed 30% stenosis in the midsegment. c. The left circumflex artery showed 30% stenosis in the proximal segment. d. The right coronary artery was a large and dominant vessel arising from the right sinus of Valsalva that did not show any significant stenosis. Conclusion Nonobstructive coronary artery disease Recommendations Optimization of medical therapy for nonischemic cardiomyopathy Plan for outpatient cardioversion for atrial fibrillation Repeat 2D echo in 3 months after cardioversion to evaluate the need for AICD implantation DATE: 08/22/20 [id number] 0 LE arteriogram Conclusion 1. Severe bilateral lower extremity peripheral artery disease involving the left superficial femoral and right external iliac arteries as described above. 2. Successful complex AIR QUALITY CHEMIST/stents placement to long chronic total occlusion involving the left superficial femoral artery. Recommendations 1. Plan for staged AIR QUALITY CHEMIST/stent placement to the right external iliac artery in 3 to 4 weeks. 2. Plavix 75 mg daily for 4 weeks and vascular risk factor modification. DATE: 11/28/20 [id number] 0 Conclusion 40 to 50% stenosis involving the right external iliac artery without any significant pullback gradient across the lesion. Recommendations Vascular risk factor modification including regular exercise regimen. DATE: 12/26/20 [id number] 0 ASSESSMENT/PLAN Assessment/Plan 1. Encephalopathy; hypoperfusion in the setting of significant hypotension likely contributing 2. AFIB; rate controlled. On warfarin for stroke prophylaxis. INR 1.1 (warfarin recently held for RLE angiogram 12/26/20) 3. CAD, nonobstructive per cath 08/31 as noted above 4. NICM; Echo with LVEF 30-35% per echo 08/01 5. Chronic systolic CHF; appear compensated 6. H/o hypertension with present hypotension; s/p IVFs. blood pressure remains low end 7. Hyperlipidemia; statin 8. Diabetes, II 10. PAD AIR QUALITY CHEMIST/stents to long PILER of the left SFA. 12. CATHERINE, COPD with continued tobaccoism. discussed/encouraged cessation Recommendations Resume secondary prevention including statin and Plavix. No ASA as patient is on warfarin Hold losartan, metoprolol with hypotension Add Digoxin for rate control Will give additional fluid bolus as patient remains hypotensive Blood cultures Outpt JUNE/CVN Outpatient echo to reassess LV systolic function, assess need for AICD for primary prevention of SCD. Supportive care Patient has follow up scheduled with Dr. Black 01/26/21 at 10:15am at [facility] CHERY BUCHANAN MD 12/30/20 0952: CARDIAC CONSULT ASSESSMENT/PLAN Assessment/Plan Patient seen and examined on 12/29/2020. I agree with our nurse practitioners assessment and plan. Encephalopathy; hypoperfusion in the setting of significant hypotension likely contributing. Improving AFIB; rate controlled. On warfarin for stroke prophylaxis. INR 1.1 (warfarin recently held for RLE angiogram 12/26/20). Digoxin added as above. Office follow-up in 4 weeks. CAD, nonobstructive per cath 08/31 as noted above NICM; Echo with LVEF 30-35% per echo 08/01 Chronic systolic CHF; appear compensated H/o hypertension with present hypotension; s/p IVFs. blood pressure remains low end Hyperlipidemia; statin Diabetes, II PAD AIR QUALITY CHEMIST/stents to long PILER of the left SFA. CATHERINE, COPD with continued tobaccoism. discussed/encouraged cessation VINI WAGNER APRN Dec 29, 2020 09:21 CHERY BUCHANAN MD Dec 30, 2020 09:52
[2020-12-29] MEDS ORDERED: METO-247 PO (10:49)
[2020-12-29] MEDS ORDERED: ATOR20TA58 PO (10:49)
[2020-12-29] MEDS ORDERED: FLUT1BLS3 IH (10:49)
[2020-12-29] MEDS ORDERED: LANO250L TP (10:49)
[2020-12-29] MEDS ORDERED: LOSA25TA11 PO (10:49)
[2020-12-29] MEDS ORDERED: POTA-112 PO (10:49)
[2020-12-29] MEDS ORDERED: ALBU2.5V8 IH (10:49)
[2020-12-29] MEDS ORDERED: FURO40TA4 PO (10:49)
[2020-12-29] MEDS ORDERED: WARF3TAB50 PO (10:49)
[2020-12-29] MEDS ORDERED: WARF4TAB64 PO (10:49)
[2020-12-29] MEDS ORDERED: GABA600T7 PO (10:55)
[2020-12-29] MEDS ORDERED: INSU100V13 SQ (10:55)
[2020-12-29] MEDS ORDERED: INSU100C4 SQ (10:55)
[2020-12-29] MEDS ORDERED: METF10007 PO (10:55)
[2020-12-29] MEDS ORDERED: CLON0.5T4 PO (10:55)
[2020-12-29 10:56] VITALS: BP 83/58
[2020-12-29] MEDS ORDERED: IV NORMAL SALINE 500ML 500 ML IV ONE (11:15)
[2020-12-29] MEDS ORDERED: DIGOXIN 125 MCG TABLET PO ONE (12:30)
[2020-12-29] MEDS ORDERED: ALBUTEROL SULFATE 2.5 MG/3 ML NEBU. IH PRN (13:00)
[2020-12-29] MEDS ORDERED: clonazePAM 0.5 MG TABLET PO PRN (13:00)
[2020-12-29] MEDS: GABAPENTIN 300 MG CAPSULE. PO SCH ×2 (13:23→21:19)
[2020-12-29] MEDS ORDERED: ALBUTEROL SULFATE 2.5 MG/3 ML NEBU. NEB PRN (14:00)
[2020-12-29] MEDS ORDERED: CLOP75TA57 PO (14:49)
[2020-12-29 15:07] VITALS: BP 89/60
[2020-12-29] MEDS ORDERED: WARFARIN 7.5 MG TABLET. PO ONE (16:00)
--- NOTE | 2020-12-29 16:13 | HP ---
DATE OF SERVICE: 12/29/2020 ADMIT DATE: 12/28/2020 HISTORY OF PRESENT ILLNESS: The patient is a 65-year-old male patient who presented to the Emergency Room of [facility] with a complaint of altered mental status. According to him, he was confused and lethargic since yesterday morning. He denied any falls, but admits he has had trouble performing typical activities of daily living for which he usually performs. confirmed that there have been no falls or any major changes in his home medication. She admitted that he has had complicated recent medical history, for which he suffered a respiratory arrest in 2020, has not been the same ever since. States he has no diagnosis of atrial fibrillation with the rate controlled on metoprolol and is anticoagulated by warfarin. He apparently has extensive cardiac disease for which he is followed by the Cardiology at [facility] and has had, according to them numerous heart stents. He also had extensive peripheral vascular disease of both lower extremities with recent left lower extremity catheterization and stent deployment about 48 hours prior to arrival to the Emergency Room. He does admit that he was started on Plavix at that time and has been taking this diligently ever since. By the time he arrived to the Emergency Room, he stated that he is feeling generally better; although, still somewhat lethargic. He also had generalized shortness of breath and chronic neuropathic pain in bilateral lower extremities. He was extensively investigated in the Emergency Room and has had lab work and imaging studies. His EKG showed that he was in atrial fibrillation at a heart rate of 123 beats per minute with unremarkable intervals, no axis deviation, no obvious ischemic changes and no ST segment elevation. His chest x-ray showed that there are no confluent infiltrates. Hyperinflation is consistent with chronic obstructive pulmonary disease. There is a calcified granuloma in the left upper lobe. No pneumothorax or pleural effusion. He did have also a CT scan of the chest, abdomen and pelvis without contrast, which showed that he has small amount of ecchymosis within the left retroperitoneum, correlate for recent left femoral artery puncture. Has [id number] centrilobular emphysema, mild bronchiectasis in the right base and small bilateral renal calculi that measures up to 4 mm. His lab work showed that his white cell count was slightly elevated at 11,200. His hemoglobin, hematocrit and platelets are all within normal range. His blood gases showed a pH of 7.39, pCO2 of 55, pO2 of 16, and bicarbonate of 34. His chemistry was mostly unremarkable and he has actually 3 sets of troponin I high sensitivities were 9, 8 and 8 that obviously ruled out acute myocardial infarction. His prothrombin time, INR, APTT and D-dimer are all within normal range. The patient was admitted with the diagnoses of: 1. Altered mental status. 2. Hypertension, atrial fibrillation and chronic obstructive pulmonary disease/emphysema. PAST MEDICAL HISTORY: Significant for insulin-requiring type 2 diabetes mellitus, hypertension, hyperlipidemia, peripheral vascular disease. He apparently has what seemed to be nonischemic cardiomyopathy with an ejection fraction of only 30-35% with mild mitral regurgitation, mild tricuspid regurgitation. Other medical problems include chronic obstructive pulmonary disease and emphysema, multiple TIAs, benign prostatic hypertrophy, generalized osteoarthritis and atrial fibrillation. He has had also history of hepatitis C that was treated. PAST SURGICAL HISTORY: Significant for left lower extremity posterior tibial artery stent deployment. He has also a left heart catheterization and underwent also cardioversion. ALLERGIES: He has no known drug allergies. MEDICATIONS: He is currently on the following medication: He is on albuterol sulfate 1 puff every 6 hours. He is on Coumadin 3 mg p.o. daily and Coumadin 4 mg daily. He is on atorvastatin, calcium 20 mg at bedtime, metoprolol succinate 1-1/2 tablet p.o. daily, losartan potassium 12.5 mg daily, clonazepam 0.5 mg twice a day, gabapentin 300 mg 3 times a day. He is on potassium chloride 10 mEq once a day, furosemide 40 mg daily. He is on Trelegy Ellipta 1 inhalation once a day. He is on metformin 1000 mg twice a day. He is on NovoLog insulin 10 units before meals and Levemir insulin 20 units at bedtime. He is on Eucerin original lotion, apply topically 4 times a day. FAMILY HISTORY: He has one brother, still alive and has multiple medical problems. Two brothers , one at the age of 67 because of congestive heart failure, the other at age of 66 because of COPD. Father at age of 67 because of myocardial infarction. Mother at age of 65 because of myocardial infarction. SOCIAL HISTORY: He is , lives with his . He has no biological children. He continued to smoke about a pack a day, does not drink alcohol or use recreational drugs. He is currently on disability. 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 REVIEW OF SYSTEMS: The patient denied any blurring of vision, cataracts, glaucoma or macular degeneration. Denied any earache, tinnitus or sensory deafness. Denied any nosebleed, stuffy nose or postnasal drip. Denied any sore throat, sore tongue, toothache, hoarseness of voice or difficulty swallowing. Denied any nausea, vomiting, diarrhea or constipation. Denied any hematemesis, melena or hematochezia. Denied any dysuria, frequency or hematuria, but did admit to features of enlarged prostate. Did complain of chest pain and shortness of breath, but denied any orthopnea or paroxysmal nocturnal dyspnea. Denied any cough, phlegm or hemoptysis. He did complain of dizziness and somewhat unsteady gait. PHYSICAL EXAMINATION: GENERAL: On arrival to the Emergency Room, he looked well and was clearly in no apparent respiratory distress. There was no pallor, jaundice, cyanosis. No lymphadenopathy, no thyromegaly, no jugular venous distention. No limb edema. VITAL SIGNS: His heart rate on arrival was 133, blood pressure was 86/54, temperature 97.9, respiratory rate was 16 and oxygen saturation was 98% on room air. HEAD, EYES, EARS, NOSE, AND THROAT: Normocephalic, atraumatic. NECK: Supple. HEART: Showed normal first and second heart sounds, no gallop or murmur. CHEST: Shows central trachea, equally reduced expansion, reduced air entry, vesicular breath sounds. There is no crepitation or rhonchi. ABDOMEN: Soft, nontender. NEUROLOGIC: He was apparently, according to the ER physician, confused, but there was no obvious lateralizing sign. LABORATORY DATA: His lab work on admission showed a white cell count of 11,200, hemoglobin 16, hematocrit 48, MCV 97 and platelet count of 188,000 with a normal manual differential. His serum sodium was 140, potassium 4, chloride 97, bicarbonate 30, anion gap of 13, BUN of ____, creatinine was 0.9. Estimated GFR was 85 mL per minute. His glucose was 139. His lactic acid was 1.4, calcium was 9.7, magnesium was 1.7. Total bilirubin 1.3. AST, ALT, alkaline phosphatase were normal. Total protein was 7.5, albumin was 4.4. Has 3 sets of troponin I high sensitivity were 9, 8 and 8, rule out myocardial infarction. His prothrombin time, INR and APTT as well as D-dimer are all within normal range. ASSESSMENT AND PLAN: In summary, this is a 65-year-old male patient who was admitted to the hospital with: 1. Altered mental status. 2. Atrial fibrillation with rapid ventricular response. He has nonobstructive coronary artery disease, nonischemic cardiomyopathy with an ejection fraction of 30-55%. Has chronic systolic congestive heart failure. He has history of hypertension, at present, hypertension, hyperlipidemia, type 2 diabetes mellitus, peripheral arterial disease, status post stent deployment. He has obstructive sleep apnea. He has chronic obstructive sleep apnea/emphysema and bronchiectasis and he unfortunately continues to smoke a pack a day. He apparently was started on Toprol to control the heart rate and according to the Cardiology nurse practitioners, the plan was to arrange for outpatient transesophageal echocardiogram and another cardioversion. JESSICA/RICO DR: Ambar TID: [id number]
[2020-12-29] MEDS: metFORMIN 500 MG TABLET PO SCH (16:14)
[2020-12-29] MEDS: MINERAL OIL/PETROLATUM TOPICAL CREAM 113GM JAR. TP SCH ×2 (17:00→21:00)
[2020-12-29] MEDS ORDERED: INSULIN LISPRO 300 UNITS/3 ML VIAL. SQ SCH (17:00)
[2020-12-29 18:57] VITALS: BP 86/63
[2020-12-29] MEDS: BUDESONIDE 0.5 MG/2 ML NEBU NEB SCH (20:00)
[2020-12-29] MEDS: IPRATRPIUM/ALBUTEROL 0.5/2.5MG 3 ML NEBU. NEB SCH (20:00)
--- NOTE | 2020-12-29 20:52 | PN ---
DATE: 12/29/2020 SUBJECTIVE: The patient is resting, slightly propped up in bed, in no apparent respiratory distress. He is more awake, alert, oriented, continued to complain of some shortness of breath, but denied any chest pain, feels somewhat lightheaded. PHYSICAL EXAMINATION: GENERAL: When I examined him, there was no pallor, jaundice, cyanosis, or thyromegaly. No jugular venous distention. No limb edema. VITAL SIGNS: His heart rate was 100, blood pressure was 95/76, temperature was 97.9, respiratory rate was 16 and oxygen saturation was 99% on room air. HEAD, EYES, EARS, NOSE, AND THROAT: Normocephalic, atraumatic. NECK: Supple. HEART: Normal first and second heart sounds. No gallop, rub or murmur. CHEST: Clear to auscultation. Central trachea. Equally reduced expansion, reduced air entry, vesicular breath sounds. No crepitation or rhonchi. ABDOMEN: Distended, soft, nontender. NEUROLOGIC: He is definitely more awake, alert, oriented to time, place and person. All cranial nerves intact. He moves extremities without difficulty. His intake over the last 24 hours was 1100, no output was recorded. LABORATORY DATA: His lab work this morning showed a white cell count 7200, hemoglobin 14, hematocrit 43, MCV 97 and platelet count of 144,000 with normal manual differential. His chemistry showed a serum sodium 140, potassium 4.2, chloride 102, bicarbonate 29, anion gap of 9, BUN 17, creatinine 0.8. Estimated GFR was 97 mL per minute. His blood sugar seems to be reasonably controlled. His calcium was 8.8. ASSESSMENT: 1. Altered mental status, somewhat improving. 2. Atrial fibrillation with rapid ventricular response for which he is now on digoxin. 3. Coronary artery disease that is nonobstructive. 4. Nonischemic cardiomyopathy with an ejection fraction showed left ventricular ejection fraction of 30-35%. 5. Chronic systolic congestive heart failure. 6. History of hypertension; however, he is currently hypotensive. 7. Hyperlipidemia. 8. Type 2 diabetes mellitus that seems to be reasonably controlled. 9. Peripheral artery disease, status post stent deployment to the left superficial femoral artery. 10. Obstructive sleep apnea. 11. Chronic obstructive pulmonary disease, emphysema and bronchiectasis. Unfortunately, the patient continues to smoke tobacco. PLAN: My plan is to continue with IV antibiotic. I have discussed the finding with the Cardiology nurse practitioner and apparently the cutter gas was more concerned about the possibility of sepsis, so I continued with IV antibiotic in the form of ceftriaxone and Zithromax. We discontinued his metoprolol and losartan, added digoxin to control the heart rate, added Plavix and also Coumadin as per pharmacy protocol. LETI DR: Ambar TID: [id number]
[2020-12-29] MEDS ORDERED: INSULIN GLARGINE SYRINGE. SQ SCH (21:00)
[2020-12-29] MEDS: INSULIN GLARGINE SYRINGE. SQ SCH (21:19)
[2020-12-30] VITALS (14 sets, daily range): BP systolic 78–135; BP diastolic 55–81
[2020-12-30] MEDS: IPRATRPIUM/ALBUTEROL 0.5/2.5MG 3 ML NEBU. NEB SCH ×3 (05:46→16:02)
[2020-12-30] MEDS: BUDESONIDE 0.5 MG/2 ML NEBU NEB SCH (05:46)
[2020-12-30 06:16] LABS: BASO # 0.1 x10^3/uL (0.0-0.2); BASO % 1 % (0-3); EOS # 0.3 x10^3/uL (0.0-0.7); EOS % 4 % (0-3); HEMATOCRIT 43.1 % (39.0-53.0); HEMOGLOBIN 14.2 g/dL (13.0-17.5); LYMPH # 1.9 x10^3/uL (1.0-4.8); LYMPH % 26 % (24-48); MEAN CORPUSCULAR HEMOGLOBIN 32 pg (25-35); MEAN CORPUSCULAR HGB CONC 33 g/dL (31-37); MEAN CORPUSCULAR VOLUME 97 fL (79-100); MONO # 0.9 x10^3/uL (0.0-1.1); MONO % 12 % (0-9); NEUT # 4.3 x10^3uL (1.8-7.7); NEUT % 58 % (31-73); PLATELET COUNT 149 x10^3/uL (140-400); RED BLOOD COUNT 4.43 x10^6/uL (4.30-5.70); RED CELL DISTRIBUTION WIDTH 15.1 % (11.5-14.5); WHITE BLOOD COUNT 7.4 x10^3/uL (4.0-11.0)
[2020-12-30] MEDS ORDERED: DIGOXIN 125 MCG TABLET ONE (06:25)
[2020-12-30 06:30] LABS: ALBUMIN 3.5 g/dL (3.4-5.0); ALBUMIN/GLOBULIN RATIO 1.1 (1.0-1.7); CALCIUM 8.8 mg/dL (8.5-10.1); CREATININE 0.8 mg/dL (0.7-1.3); GFR 97.6; POTASSIUM 4.3 mmol/L (3.5-5.1); TOTAL BILIRUBIN 0.8 mg/dL (0.2-1.0); TOTAL PROTEIN 6.6 g/dL (6.4-8.2)
[2020-12-30] MEDS ORDERED: DIGOXIN IV 500 MCG/2 ML AMPUL. IV ONE (07:00)
[2020-12-30] MEDS: metFORMIN 500 MG TABLET PO SCH ×2 (07:32→16:01)
[2020-12-30] MEDS: MINERAL OIL/PETROLATUM TOPICAL CREAM 113GM JAR. TP SCH ×3 (07:33→16:03)
[2020-12-30] MEDS: GABAPENTIN 300 MG CAPSULE. PO SCH ×2 (07:33→13:26)
[2020-12-30] MEDS ORDERED: CLOPIDOGREL BISULFATE 75 MG TABLET PO SCH ×2 (08:00→09:00)
[2020-12-30] MEDS: INSULIN LISPRO 300 UNITS/3 ML VIAL. SQ SCH ×3 (08:00→16:48)
[2020-12-30] MEDS ORDERED: METOPROLOL SUCC 24HR ER 50 MG TAB.ER.24H. PO SCH (09:00)
[2020-12-30] MEDS ORDERED: WARFARIN 4 MG TABLET. PO SCH (09:00)
[2020-12-30] MEDS ORDERED: AZITHROMYCIN 250 MG TABLET. PO SCH (09:00)
[2020-12-30] MEDS ORDERED: FUROSEMIDE 40 MG TABLET PO SCH (09:00)
[2020-12-30] MEDS ORDERED: NON FORMULARY ITEM (Fluticasone/Umeclidin/Vilanter (Trelegy Ellipta 100-62.5-25) 1 EACH) IH SCH (09:00)
[2020-12-30] MEDS ORDERED: WARFARIN 3 MG TABLET. PO SCH (09:00)
[2020-12-30] MEDS ORDERED: POTASSIUM CHLORIDE 10 MEQ TABLET.ER. PO SCH (09:00)
[2020-12-30] MEDS ORDERED: DIGOXIN 125 MCG TABLET PO SCH (09:00)
[2020-12-30] MEDS ORDERED: ATORVASTATIN CALCIUM 20 MG TABLET PO SCH (09:00)
[2020-12-30] MEDS ORDERED: METOPROLOL SUCC 24HR ER 25 MG TAB.ER.24H. PO SCH (09:00)
[2020-12-30] MEDS ORDERED: LOSARTAN 25 MG TABLET. PO SCH (09:00)
[2020-12-30] MEDS ORDERED: NICOTINE 21MG PATCH. TD SCH (13:15)
[2020-12-30] MEDS ORDERED: AMIODARONE 450 MG in IV DEXTROSE 5% 250 ML IV ONE (13:30)
[2020-12-30] MEDS ORDERED: AMIODARONE 150 MG in IV DEXTROSE 5% 100 ML IVP ONE (14:00)
[2020-12-30] MEDS ORDERED: WARFARIN 7.5 MG TABLET. PO ONE (16:00)
--- NOTE | 2020-12-30 20:26 | DS ---
DATE OF DISCHARGE: 12/30/2020 DISCHARGE/TRANSFER SUMMARY HOSPITAL COURSE: The patient is a 65-year-old male patient who was admitted originally to the Emergency Room with altered mental status that has subsequently improved. He was found to be in atrial fibrillation with rapid ventricular response. 1. Nonobstructive coronary artery disease, nonischemic cardiomyopathy with an ejection fraction of 30-55%. 2. Has chronic systolic congestive heart failure. 3. Has history of hypertension; however, he is actually getting hypotensive. 4. Hyperlipidemia. 5. Type 2 diabetes mellitus. 6. Peripheral arterial disease, status post stent deployment. 7. Obstructive sleep apnea. 8. He has chronic obstructive pulmonary disease and emphysema as well as bronchiectasis; however, unfortunately he continues to smoke a pack a day. His heart rate has been uncontrolled despite using metoprolol and digoxin. He was started on amiodarone as per Cardiology team recommendation and plan was to transfer him to [facility] for further evaluation and treatment and perhaps JUNE and cardioversion. PHYSICAL EXAMINATION: GENERAL: When I saw him today, he was sitting propped up in bed, in no apparent respiratory distress. He was pale, not jaundiced, cyanosed. No lymphadenopathy, no thyromegaly, no jugular venous distention, no limb edema. VITAL SIGNS: His heart rate was 113, irregularly irregular, blood pressure was 103/77, temperature 97.5, respiratory rate 20, and oxygen saturation was 96% on room air. HEAD, EYES, EARS, NOSE, AND THROAT: Normocephalic, atraumatic. NECK: Supple. HEART: Regular first heart sound and normal second heart sound. No gallop, rub or murmur. CHEST: Showed central trachea, equally reduced expansion, reduced air entry, vesicular breath sounds. No crepitation or rhonchi. ABDOMEN: Distended, soft, nontender. NEUROLOGIC: He was grossly intact. His intake was 1250. LABORATORY DATA: As of this morning, his white cell count was 7400, hemoglobin was 14, hematocrit 43, MCV 97 and platelet count of 149,000. His chemistry showed a serum sodium of 143, potassium 4.3, chloride 105, bicarbonate 27, anion gap of 11, BUN 13, creatinine 0.8. Estimated GFR was 97 mL per minute. His glucose 131, calcium was 8.8. Total bilirubin, AST, ALT, alkaline phosphatase were normal. Total protein 6.6, albumin was 3.5, his prothrombin time was 12.3, INR 1.2, and D-dimer was 0.37. His coronavirus by PCR was negative. DISCHARGE MEDICATIONS: He was transferred to [facility] to continue on Coumadin 7.5 mg once a day. He is on amiodarone drip and nicotine 21 mg patch topically once a day, azithromycin 250 mg daily, digoxin 250 mcg daily, potassium chloride 10 mEq once a day, atorvastatin 20 mg daily, Plavix 75 mg daily, Pulmicort 0.5 mg by nebulizer twice a day, DuoNeb in 3 mL by nebulizer 4 times a day, ceftriaxone 1 gram IV daily, metformin 1000 mg p.o. b.i.d., albuterol sulfate 2.5 mg every 6 hours, gabapentin 300 mg 3 times a day, clonazepam 0.5 mg twice a day. He is on insulin sliding scale before meals and Lantus insulin 8 units at bedtime. FINAL DISCHARGE DIAGNOSES: 1. Altered mental status, resolved. 2. Atrial fibrillation with rapid ventricular response for which he is now on digoxin and amiodarone drip. 3. Coronary artery disease that is nonobstructive. 4. Nonischemic cardiomyopathy with an ejection fraction of 30-35%. 5. Chronic systolic congestive heart failure. 6. Hypertension, however, he is currently hypotensive. 7. Hyperlipidemia. 8. Type 2 diabetes mellitus, seems to be reasonably controlled. 9. Peripheral arterial disease, status post stent deployment to the left superficial femoral artery. 10. Obstructive sleep apnea. 11. Chronic obstructive pulmonary disease, emphysema and bronchiectasis. Unfortunately, the patient continues to smoke tobacco. MYRON DR: Ambar TID: [id number]
== END 2020-12-30 17:00 | disposition short-term general hospital (02) | DRG 314 ==
LOC: ER 16:51 → 1 SOUTH 19:24 → ICU 12-30 12:51
PROVIDERS: ADMIT Internal Medicine; ATTEND Internal Medicine
DX: I95.9 Hypotension, unspecified (principal); A41.9 Sepsis, unspecified organism; I50.22 Chronic systolic (congestive) heart failure; G93.40 Encephalopathy, unspecified; I42.8 Other cardiomyopathies; I48.20 Chronic atrial fibrillation, unspecified; R41.82 Altered mental status, unspecified; I25.10 Atherosclerotic heart disease of native coronary artery without angina pectoris; E11.51 Type 2 diabetes mellitus with diabetic peripheral angiopathy without gangrene; I11.0 Hypertensive heart disease with heart failure; G47.33 Obstructive sleep apnea (adult) (pediatric); F17.210 Nicotine dependence, cigarettes, uncomplicated; E78.5 Hyperlipidemia, unspecified; J47.9 Bronchiectasis, uncomplicated; J43.2 Centrilobular emphysema; N40.0 Benign prostatic hyperplasia without lower urinary tract symptoms; M15.9 Polyosteoarthritis, unspecified; Z95.820 Peripheral vascular angioplasty status with implants and grafts; Z95.5 Presence of coronary angioplasty implant and graft; Z95.1 Presence of aortocoronary bypass graft; Z86.73 Personal history of transient ischemic attack (TIA), and cerebral infarction without residual deficits; Z82.5 Family history of asthma and other chronic lower respiratory diseases; Z82.49 Family history of ischemic heart disease and other diseases of the circulatory system; Z79.4 Long term (current) use of insulin; Z20.822 Contact with and (suspected) exposure to COVID-19
CPT/HCPCS: 36415; 70450; 71045; 71250; 74176; 80048; 80053; 82803; 82947; 83605; 83735; 84145; 84443; 84484; 85025; 85379; 85610; 85730; 87040; 87426; 93005; 94640; 96361; 96365; 96375; 99406; J0282; J0696; J1160; J1815; J3010; J3475; J7040; J7120; U0003; 97530; 99285-25